=== PATIENT | male | born 1955 | race Caucasian/White ===

== ENCOUNTER 2018-07-06 15:24 | Emergency (ER) | payer OTHER ==
--- NOTE | 2018-07-06 15:48 | PDOC ---
Attending Attestation - Resident Resident Name: Tamika Goncalves - ED Attending Attestation I have performed the following: I have examined & evaluated the patient, The case was reviewed & discussed with the resident, I agree w/resident's findings & plan, Exceptions are as noted - HPI HPI: 07/06/18 17:25 This patient is a 63 year old male with no significant PMHx who is presenting to the ED with complaints of generalized weakness and subjective fever. Patient was fine yesterday morning but since last night he felt lethargic and today he still feels weak and reports subjective fevers. He states that he went into the bathtub to cool down. As per EMS, patient was in the bathtub and was unable to get out without assistance.Patient endorses feeling nauseous and lightheaded earlier today. Patient also notes diffuse abdominal pain, 3 episodes of clear vomit and occasional dry cough. Denies taking any medication other than 2 advil today. + sick contact- son who lives with pt. no recent travel. Denies any headache,diarrhea, or constipation. Denies any visual changes. Denies recent travel. Denies toxic habits. Takes ritalin occasionally. Surgical Hx: Cholecystectomy social: denies ivdum, recreational drug use family hx: noncontributory - Physicial Exam PE: 07/06/18 16:47 GENERAL: The patient is somnolent, but arousable to vertbal stimulus HEAD: Normocephalic, atraumatic. EYES: extraocular movements intact, sclera anicteric, conjunctiva clear, pupils 3mm and symmetrcall reactive to light ENT: Normal voice, mildly dry mucous membranes. NECK: Normal range of motion, supple LUNGS: Breath sounds equal, clear to auscultation bilaterally. No wheezes, no rhonchi, no rales. HEART: Regular rate and rhythm, normal S1 and S2 without murmur, rub or gallop. ABDOMEN: Soft,mild LLQ tenderness, normoactive bowel sounds. No guarding, no rebound. . EXTREMITIES: Normal range of motion, no edema. No clubbing or cyanosis. No cords, erythema, or tenderness. NEUROLOGICAL: No facial assymetry, Normal speech, movinga ll 4 extrmities spontaneously and symmetrically, neg kernigs and neg brudzinski, normal finger to nose, rapid alternating movements PSYCH: Normal mood, normal affect. SKIN: Warm, Dry, normal turgor, - Medical Decision Making 07/06/18 16:17 63y M no known pmhx presents with generalized waekness, malaise, nauea fo rhte past day. pt notes nausea seems to worsen when he turns his head. on exam pt is somnolent/weak appearing. no focal exam findings beside mild LLQ ttp on abd exam ddx is wide and includes but not limkited to metabolic dernagement, occult infection such as uti, pna, influenza, clinton ck labs, ua no fever to sugest meningitis fluids, zofran, will reassess A portion of this note was documented by scribe services under my direction. I have reviewed the details of the note, within reason, and agree with the documentation with the following case summary and management plan written by me 07/06/18 19:17 pt seems to be feeling much better after 1L of NS labs reviewed noted for leukocytosis will contineu to hydrate pt also given meclizine as he notes symptoms seem to worsen when he turns his head? mild vertigo? if pt feeling better, ambulatory will dc with pmd fu and supportive care signed out to evening team to reassess
--- NOTE | 2018-07-06 16:12 | PDOC ---
History of Present Illness - General Stated Complaint: VOMITING Time Seen by Provider: 07/06/18 15:32 History Source: Patient, EMS, Family (daughter) Exam Limitations: Clinical Condition - History of Present Illness Initial Comments: 07/06/18 15:59 Pt is a 63yo M with no significant PMH presenting to ED with complaints of weakness and fever. Per EMS pt was found in the bathtub and was unable to get up. Per daughter pt was fine yesterday but today was in bed all day. Pt stated he felt like he had a fever and felt like he was "going to have a seizure" so he went into the tub. He was unable to get out of the tub so EMS was called. He endorses lightheadedness, nausea, subjective fever and weakness. Denies headache , sore throat, ear pain, chest pain, SOB, cough, abdominal pain, n/v/d, urinary symptoms, numbness/tingling. PMD: none PMH: none PSH: cholecystectomy Meds: none Allergies: nkda Social: denies Past History - Past Medical History Allergies/Adverse Reactions: Allergies Allergy/AdvReac Type Severity Reaction Status Date / Time No Known Allergies Allergy Verified 07/06/18 16:49 Home Medications: Ambulatory Orders Azithromycin 250 mg PO DAILY #4 tablet 07/06/18 Review of Systems - Review of Systems Constitutional: Yes: Fever, Weakness. No: Chills HEENTM: No: Symptoms Reported Respiratory: No: Cough, Shortness of Breath Cardiac (ROS): Yes: Lightheadedness. No: Chest Pain, Syncope, Chest Tightness ABD/GI: Yes: Nausea, Poor Fluid Intake. No: Blood Streaked Bowels, Constipated , Diarrhea, Poor Appetite, Rectal Bleeding, Vomiting, Abdominal cramping, Tarry Stools : No: Burning, Frequency, Flank Pain Musculoskeletal: No: Back Pain, Joint Pain Integumentary: No: Symptoms Reported Neurological: Yes: Dizziness. No: Headache, Numbness, Seizure, Tingling, Tremors, Weakness *Physical Exam - Physical Exam General Appearance: Yes: Other (lethargic, ill appearing) HEENT: positive: EOMI, NATE, Pharynx Normal, Other (dry mucus membranes. R tympanic membrane had what looked like a black bubble or bulla?). negative: Sinus Tenderness, TM Bulging, TM Erythema Neck: positive: Trachea midline, Supple. negative: Lymphadenopathy (R), Lymphadenopathy (L) Respiratory/Chest: positive: Lungs Clear, Normal Breath Sounds. negative: Paradoxal Breathing, Crackles, Rales, Rhonchi Cardiovascular: positive: Regular Rhythm, Regular Rate, S1, S2. negative: Edema , JVD, Murmur Vascular Pulses: Carotid (R): 2+, Carotid (L): 2+, Dorsalis-Pedis (R): 2+, Doralis-Pedis (L): 2+ Gastrointestinal/Abdominal: positive: Normal Bowel Sounds, Soft. 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 Per EMS pt was found in the bathtub and was unable to get up. Per daughter pt was fine yesterday but today was in bed all day. Pt stated he felt like he had a fever and felt like he was "going to have a seizure" so he went into the tub. He was unable to get out of the tub so EMS was called. He endorses lightheadedness, nausea, subjective fever and weakness. Denies headache , sore throat, ear pain, chest pain, SOB, cough, abdominal pain, n/v/d, urinary symptoms, numbness/tingling. Vitals: wnl PE: dry mucous membranes, lethargic, ill appearing. Answering questions appropriately, AOx3 ddx includes but not limited to influenza, dehydration, tia/cva, electrolyte/ metabolic disturbance. -cbc, cmp, ua,ucx, utox, cardiac profile, lactic acid, flu iv fluids, zofran Given no focality of abdominal pain and no neurological deficits, no need for imaging at this time. reassess. lab significant for wbc 14, bili 1.5 all other labs wnl. Flu negative ua, utox pending. Pt perking up. Will give another bolus of fluids. Still feels dizzy, will give meclizine and zofran. Pt feeling much better, is asking for meals. R tympanic membrane had bullae? or rupture? given zithromax 500mg iv. Banana bag given. Will redraw labs and dc Pt is ambulatory. Labs pending. rx sent for azithromycin. UA negative for infection. urobilinogen present. 07/07/18 00:05 07/07/18 00:07 07/07/18 00:10 *DC/Admit/Observation/Transfer Diagnosis at time of Disposition: Weakness, Dehydration - Discharge Dispostion Decision to Admit order: No - Prescriptions Prescriptions: Azithromycin 250 mg PO DAILY #4 tablet - Referrals Referrals: David Cervantes MD [Staff Physician] - - Patient Instructions Printed Discharge Instructions: DI for Dehydration -- Adult Additional Instructions: You were seen here today because you were feeling weak. All your blood tests were normal. You were most likely dehydrated. Please keep yourself hydrated by drinking water or Gatorade. Try not to drink caffeine beverages. You need to start seeing a primary care doctor. If you like you can make an appointment with primary care doctors affiliated with this hospital. located at [address] A prescription was sent to your pharmacy. You received a dose here in the emergency room. Please take as directed. Come back to the emergency room if you feel weak again, pass out, have fevers, develop abdominal pain or if any new concerning symptom develops Thank you - Post Discharge Activity
[2018-07-06 16:49] LABS: BASO % 0.5 % (0-2.0); EOS % 0.8 % (0-4.5); HEMATOCRIT 46.4 % (35.4-49); HEMOGLOBIN 15.9 GM/dL (11.7-16.9); LYMPH % 5.7 % (8-40); MCH 30.7 pg (25.7-33.7); MCHC 34.3 g/dl (32.0-35.9); MEAN CELL VOLUME 89.6 fl (80-96); MEAN PLT VOLUME 8.8 fl (7.5-11.1); MONO % 9.9 % (3.8-10.2); NEUT % 83.1 % (42.8-82.8); PLATELET COUNT 229 K/MM3 (134-434); RBC 5.18 M/mm3 (4.00-5.60); RDW 12.6 % (11.9-15.9); WHITE BLOOD COUNT 13.7 K/mm3 (4.0-10.0)
[2018-07-06 16:51] VITALS: BP 141/63; PULSE 92; TEMP 97.5; BMI 27.8
[2018-07-06] MEDS ORDERED: ONDANSETRON 4 MG/2 ML VIAL IVPB ONE (17:00)
[2018-07-06] MEDS ORDERED: SODIUM CHLORIDE 1,000 ML IV ONE ×2 (17:00→17:42)
[2018-07-06] MEDS ORDERED: ONDANSETRON 4 MG/2 ML VIAL ONE (17:02)
[2018-07-06 17:07] LABS: ALK PHOS 90 U/L (45-117); ANION GAP 8 MMOL/L (8-16); BILIRUBIN,TOTAL 1.5 mg/dL (0.2-1); BLOOD UREA NITROGEN 17 mg/dL (7-18); CALCIUM 8.4 mg/dL (8.5-10.1); CHLORIDE 101 mmol/L (98-107); CO2 27 mmol/L (21-32); CREATININE 1.1 mg/dL (0.55-1.3); GLUCOSE,RANDOM 142 mg/dL (74-106); POTASSIUM 4.5 mmol/L (3.5-5.1); SGOT/AST 31 U/L (15-37); SGPT/ALT 49 U/L (13-61); SODIUM 136 mmol/L (136-145); TOT PROT 7.4 g/dl (6.4-8.2)
[2018-07-06] MEDS ORDERED: MECLIZINE HCL 25 MG TABLET (FP) PO ONE (17:49)
[2018-07-06] MEDS ORDERED: METOCLOPRAMIDE HCL 10 MG TABLET (FP) PO ONE ×2 (17:49→18:50)
[2018-07-06] MEDS ORDERED: MECLIZINE HCL 25 MG TABLET (FP) ONE (18:50)
[2018-07-06] MEDS ORDERED: AZITHROMYCIN IVPB 500 MG in DEXTROSE 5%-WATER - 250 ML IVPB ONE (21:37)
[2018-07-06] MEDS ORDERED: FOLIC ACID INJECTION - 1 MG, THIAMINE HCL 100 MG, MULTIVIT INJECTION ADULT 10 ML in SOD... IVPB ONE (21:41)
[2018-07-06] MEDS ORDERED: AZITHROMYCIN IVPB 500 MG/250 ML BAG IVPB ONE (21:59)
[2018-07-06 22:00] LABS: URINE APPEARANCE CLEAR; URINE BILIRUBIN NEGATIVE (<2.0 mg/dL); URINE COLOR DKYELLOW; URINE GLUCOSE (UA) NEGATIVE (NEGATIVE); URINE KETONE TRACE (NEGATIVE); URINE LEUK ESTERASE NEGATIVE (NEGATIVE); URINE NITRITE NEGATIVE (NEGATIVE); URINE PROTEIN NEGATIVE (NEGATIVE)
[2018-07-06 22:09] LABS: COCAINE, UR NEGATIVE ng/ml (CUTOFF=300); OPIATES, URI NEGATIVE ng/ml (CUTOFF=300); URINE AMPHETAMINES NEGATIVE ng/ml (CUTOFF=500); URINE BARBITURATES NEGATIVE ng/ml (CUTOFF=200)
[2018-07-06 22:10] LABS: METHADONE, UR NEGATIVE ng/ml (CUTOFF=300); PHENCYCLIDINE,URINE NEGATIVE ng/ml (CUTOFF=25); URINE BENZODIAZEPINES NEGATIVE ng/ml (CUTOFF=200)
[2018-07-06 23:39] LABS: BASO % 0.4 % (0-2.0); EOS % 0.2 % (0-4.5); HEMATOCRIT 40.6 % (35.4-49); LYMPH % 10.1 % (8-40); MCH 30.9 pg (25.7-33.7); MCHC 34.4 g/dl (32.0-35.9); MEAN CELL VOLUME 89.8 fl (80-96); MEAN PLT VOLUME 8.2 fl (7.5-11.1); MONO % 8.3 % (3.8-10.2); PLATELET COUNT 198 K/MM3 (134-434); RBC 4.51 M/mm3 (4.00-5.60); RDW 12.6 % (11.9-15.9); WHITE BLOOD COUNT 8.4 K/mm3 (4.0-10.0)
[2018-07-07 00:03] LABS: ALBUMIN 3.1 g/dl (3.4-5.0); ALK PHOS 71 U/L (45-117); ANION GAP 7 MMOL/L (8-16); BILIRUBIN,TOTAL 1.2 mg/dL (0.2-1); BLOOD UREA NITROGEN 16 mg/dL (7-18); CALCIUM 7.2 mg/dL (8.5-10.1); CHLORIDE 106 mmol/L (98-107); CO2 26 mmol/L (21-32); CREATININE 1.1 mg/dL (0.55-1.3); GLUCOSE,RANDOM 250 mg/dL (74-106); POTASSIUM 4.1 mmol/L (3.5-5.1); SGOT/AST 22 U/L (15-37); SGPT/ALT 40 U/L (13-61); SODIUM 139 mmol/L (136-145); TOT PROT 5.7 g/dl (6.4-8.2)
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
--- NOTE | 2018-07-07 09:53 | EKG ---
Test Reason : Blood Pressure : / mmHG Vent. Rate : 085 BPM Atrial Rate : 085 BPM P-R Int : 148 ms QRS Dur : 108 ms QT Int : 370 ms P-R-T Axes : 021 -16 040 degrees QTc Int : 440 ms NORMAL SINUS RHYTHM NONSPECIFIC T WAVE ABNORMALITY ABNORMAL ECG NO PREVIOUS ECGS AVAILABLE Confirmed by PAULIE TOMLINSON MD ([id number]) on 07/07/2018 9:53:20 AM Referred By: Confirmed By:PAULIE TOMLINSON MD
== END 2018-07-07 00:16 | disposition home or self-care (01) ==
LOC: JER 15:24
PROC: 3E033GC Introduction of Other Therapeutic Substance into Peripheral Vein, Percutaneous Approach (ICD-10-PCS; principal; 2018-07-06)
PROC: 3E03329 Introduction of Other Anti-infective into Peripheral Vein, Percutaneous Approach (ICD-10-PCS; 2018-07-06)
DX: E86.0 Dehydration (principal)
CPT/HCPCS: 36415; 71045-TC-FY; 80053; 80307; 81003; 82550; 83605; 84484; 85025; 87086; 87804; 93005; 93010; 99282-25; J7030

== ENCOUNTER 2018-12-14 18:06 | Emergency (ER) | payer OTHER ==
[2018-12-14 18:22] VITALS: BP 146/86; PULSE 73; TEMP 98.6; BMI 27.8
[2018-12-14] MEDS ORDERED: SODIUM CHLORIDE 0.9% 500 ML INFUS.BAG IV ONE (18:52)
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
--- NOTE | 2018-12-14 19:17 | PDOC ---
Documentation entered by Haritha Gonzalez SCRIBE, acting as scribe for Bhanu Maya MD. Bhanu Maya MD: This documentation has been prepared by the Carlos pratt Brenda, SCRIBE, under my direction and personally reviewed by me in its entirety. I confirm that the documentation accurately reflects all work, treatment, procedures, and medical decision making performed by me. Attending Attestation - Resident Resident Name: Ramin Mendieta - ED Attending Attestation I have performed the following: I have examined & evaluated the patient, The case was reviewed & discussed with the resident, I agree w/resident's findings & plan, Exceptions are as noted - HPI HPI: 12/14/18 18:50 63-year-old male with no medical history presents with lightheadedness, generalized weakness for 2 weeks. The patient states that for the last 2 weeks she's been feeling increasingly more dehydrated and generally weak. He states that he's been feeling more tired and lethargic over time. However, he never endorse any chest pain or shortness of breath. Denies recent illnesses, fevers, chills, cough, vomiting, diarrhea. He does however dorsum right ear discomfort but no sore throat or other symptoms. Patient stated that he had a similar instance of July where he came here to the ER. After reviewing the chart, the patient had some her symptoms but the symptom intensity is worse at that time. He had an EKG and chest x-ray that was unremarkable. Labs obtained showed no acute findings. He was ultimately diagnosed with bullous meningitis and discharged with azithromycin. Patient reported that the symptoms improved over last several weeks and it resolved. However, he is having similar symptoms now. He however has no abdominal pain at this time. - Physicial Exam PE: 12/14/18 18:52 GENERAL: Awake, alert, and fully oriented, in no acute distress HEAD: No signs of trauma EYES: EOMI, sclera anicteric, conjunctiva clear ENT: Auricles normal inspection, hearing grossly normal, nares patent, oropharynx clear without exudates. Moist mucosa. Left TM clear without exudates or drainage. R TM with ?bullous, vesicles?, mild erythema but no bulging or airfluid level NECK: Normal ROM, supple, LUNGS: Breath sounds equal, clear to auscultation bilaterally. No wheezes, and no crackles HEART: Regular rate and rhythm, normal S1 and S2, no murmurs, rubs or gallops ABDOMEN: Soft, normoactive bowel sounds. No guarding, no rebound. No masses EXTREMITIES: Normal range of motion, no edema. No clubbing or cyanosis. No cords, erythema, or tenderness NEUROLOGICAL: Cranial nerves II through XII grossly intact. Normal speech, normal gait SKIN: Warm, Dry, normal turgor, no rashes or lesions noted. - Medical Decision Making 12/14/18 18:52 A portion of this note was documented by scribe services under my direction. I have reviewed the details of the note, within reason, and agree with the documentation with the following case summary and management plan written by me. Patient treated in the ED. Nursing notes are reviewed and incorporated into the medical decision-making. Vital signs reviewed. Peripheral IV access obtained by the nurse, laboratory studies are drawn and sent, reviewed and interpreted by myself. Vital Signs Temp Pulse Resp BP Pulse Ox 98.6 F 73 20 146/86 97 12/14/18 18:07 12/14/18 18:07 12/14/18 18:07 12/14/18 18:07 12/14/18 18:07 At this time, the patient's lightheadedness may be potentially secondary dehydration. However, patient should go other acute findings. There is some partial finding that may be consistent with bullous pharyngitis and I will write a prescription for azithromycin to treat at this time. I have less suspicion for cardiac or other metabolic disarray at this time but will check with blood work and a urinalysis. We'll give IV hydration. The workup demonstrates no acute findings, the patient be discharged home with supportive care and encourage by mouth intake. The patient is signed out to incoming night attending, Dr. Edgar Luna, for further management and disposition. Heart Score/ECG Review #1 ECG reviewed & interpreted by me at: 19:10 12/14/18 19:16 NSR 67, no std/narinder, normal axis, normal intervals, QTC 424 msec
[2018-12-14 19:32] LABS: BASO % 0.4 % (0-2.0); EOS % 3.2 % (0-4.5); HEMATOCRIT 45.9 % (35.4-49); HEMOGLOBIN 15.4 GM/dl (11.7-16.9); LYMPH % 33.8 % (8-40); MCHC 33.5 g/dl (32.0-35.9); MEAN CELL VOLUME 89.5 fl (80-96); MEAN PLT VOLUME 9.1 fl (7.5-11.1); MONO % 9.4 % (3.8-10.2); NEUT % 53.2 % (42.8-82.8); PLATELET COUNT 290 K/MM3 (134-434); RBC 5.13 M/mm3 (4.00-5.60); RDW 12.1 % (11.9-15.9); WHITE BLOOD COUNT 10.8 K/mm3 (4.0-10.8)
[2018-12-14 19:41] LABS: ALBUMIN 4.1 g/dl (3.4-5.0); BILIRUBIN,TOTAL 1.1 mg/dl (0.2-1); CALCIUM 8.9 mg/dl (8.5-10); CREATININE 0.8 mg/dl (0.55-1.3); MAGNESIUM 2.1 mg/dL (1.8-2.4)
[2018-12-14] MEDS ORDERED: AZITHROMYCIN 250 MG TABLET PO ONE (20:37)
[2018-12-14] MEDS ORDERED: AZITHROMYCIN 250 MG TABLET ONE (20:38)
--- NOTE | 2018-12-15 10:03 | EKG ---
Test Reason : Blood Pressure : / mmHG Vent. Rate : 067 BPM Atrial Rate : 067 BPM P-R Int : 146 ms QRS Dur : 104 ms QT Int : 402 ms P-R-T Axes : 064 -10 058 degrees QTc Int : 424 ms NORMAL SINUS RHYTHM WITH SINUS ARRHYTHMIA NORMAL ECG WHEN COMPARED WITH ECG OF 06-JUL-2018 16:56, NO SIGNIFICANT CHANGE WAS FOUND Confirmed by PAULIE TOMLINSON MD ([id number]) on 12/15/2018 10:02:31 AM Referred By: Confirmed By:PAULIE TOMLINSON MD
== END 2018-12-14 20:40 | disposition home or self-care (01) ==
LOC: FER 18:06
PROC: 3E0337Z Introduction of Electrolytic and Water Balance Substance into Peripheral Vein, Percutaneous Approach (ICD-10-PCS; principal; 2018-12-14)
DX: E86.0 Dehydration (principal); F90.9 Attention-deficit hyperactivity disorder, unspecified type
CPT/HCPCS: 36415; 80053; 81003; 82550; 83735; 84484; 85025; 93005; 99283-25

== ENCOUNTER 2022-03-29 07:10 | Day surgery (SDC) | payer OTHER ==
[2022-03-28 14:33] VITALS: BMI 28.7
[2022-03-29] MEDS ORDERED: LIDOCAINE HCL/PF 2% SDV 5ML VIAL ONE (07:21)
[2022-03-29] MEDS ORDERED: PROPOFOL 120 ML ONE (07:21)
[2022-03-29 08:35] VITALS: RESP 16; TEMP 97.7
[2022-03-29 08:59] VITALS: BP 119/62; PULSE 75
== END 2022-03-29 09:29 | disposition home or self-care (01) ==
LOC: FASU-ENDO 07:10
PROVIDERS: ATTEND Internal Medicine Gastroenterology
PROC: 0DB98ZX Excision of Duodenum, Via Natural or Artificial Opening Endoscopic, Diagnostic (ICD-10-PCS; 2022-03-29)
PROC: 0DB68ZX Excision of Stomach, Via Natural or Artificial Opening Endoscopic, Diagnostic (ICD-10-PCS; 2022-03-29)
PROC: 0D748DZ Dilation of Esophagogastric Junction with Intraluminal Device, Via Natural or Artificial Opening Endoscopic (ICD-10-PCS; 2022-03-29)
PROC: 0DJD8ZZ Inspection of Lower Intestinal Tract, Via Natural or Artificial Opening Endoscopic (ICD-10-PCS; principal; 2022-03-29 07:52)
DX: Z12.11 Encounter for screening for malignant neoplasm of colon (principal); Z86.010 Personal history of colon polyps; Z80.0 Family history of malignant neoplasm of digestive organs; K57.30 Diverticulosis of large intestine without perforation or abscess without bleeding; K29.50 Unspecified chronic gastritis without bleeding; K31.7 Polyp of stomach and duodenum; R10.13 Epigastric pain
CPT/HCPCS: 43239; 43450; G0105; 88305-TC; 88342-TC